=== PATIENT | male | born 1940 | race Two or more races ===

== ENCOUNTER 2023-06-23 15:31 | Inpatient (IN) | payer MEDICARE, MEDICAID ==
[~2023-06-23] VITALS: Ht 170.2 cm; Wt 73.4 kg
[2023-06-23 16:01] LABS: Basophils # (auto) 0.1 10 ^3/uL (0-0.2); Basophils % (auto) 0.8 % (0.0-2.0); Eosinophils # (auto) 0 10 ^3/uL (0-0.8); Eosinophils % (auto) 0.1 % (0.0-7.0); Hematocrit 49.7 % (41.0-53.0); Hemoglobin 16.7 g/dL (13.5-17.5); Lymphocytes # (auto) 0.8 10 ^3/uL (0.4-5.4); Lymphocytes % (auto) 6.8 % (10.0-50.0); Mean Corpuscular Hemoglobin 32.2 pg (28.0-32.0); Mean Corpuscular Hgb Conc. 33.6 g/dL (32.0-36.0); Mean Corpuscular Volume 95.6 fL (80.0-100.0); Monocytes # (auto) 0.6 10 ^3/uL (0-1.3); Monocytes % (auto) 4.9 % (0.0-12.0); Neutrophils # (auto) 10.3 10 ^3/uL (1.6-8.6); Neutrophils % (auto) 87.4 % (37.0-80.0); Red Cell Distribution Width 14.5 % (11.8-14.3); White Blood Cell 11.8 10^3/uL (4.4-10.8)
[2023-06-23 16:34] LABS: Calcium 9.1 mg/dL (8.5-10.1); Potassium 4.2 mmol/L (3.5-5.1)
[2023-06-23 16:38] LABS: BUN/Creatinine Ratio 12.1 (10.0-20.0); Bilirubin, Total 1.1 mg/dL (0.2-1.0); Total Protein 7.3 g/dL (6.4-8.2)
[2023-06-23 16:50] LABS: INR 1.05 (0.9-1.15); Partial Thromboplastin Time 28.8 SEC (24.5-34.5)
[2023-06-23] MEDS ORDERED: ONDANSETRON HCL 4 MG/2 ML VIAL IV PRN (20:45)
[2023-06-23] MEDS ORDERED: MORPHINE SULFATE INJ 2 MG/ml SYRG IV PRN (20:45)
[2023-06-23] MEDS ORDERED: NITROGLYCERIN 0.4 MG SL TAB SL PRN (20:45)
[2023-06-23] MEDS ORDERED: ACETAMINOPHEN 325 MG TAB PO PRN (20:45)
[2023-06-23] MEDS ORDERED: ATORVASTATIN 20 MG TAB PO SCH (22:00)
[2023-06-23 23:35] VITALS: PULSE 94; RESP 18; O2SAT 96
[2023-06-24] MEDS: METOPROLOL TARTRATE 25 MG TAB PO SCH ×3 (00:01→23:26)
[2023-06-24 05:59] LABS: Basophils # (auto) 0.1 10 ^3/uL (0-0.2); Basophils % (auto) 1.1 % (0.0-2.0); Eosinophils # (auto) 0.2 10 ^3/uL (0-0.8); Eosinophils % (auto) 2.3 % (0.0-7.0); Hematocrit 46.3 % (41.0-53.0); Hemoglobin 16.4 g/dL (13.5-17.5); Lymphocytes # (auto) 2.1 10 ^3/uL (0.4-5.4); Lymphocytes % (auto) 23.3 % (10.0-50.0); Mean Corpuscular Hemoglobin 33.2 pg (28.0-32.0); Mean Corpuscular Hgb Conc. 35.4 g/dL (32.0-36.0); Monocytes % (auto) 11.5 % (0.0-12.0); Neutrophils # (auto) 5.6 10 ^3/uL (1.6-8.6); Neutrophils % (auto) 61.8 % (37.0-80.0); Red Blood Cells 4.92 10^6/uL (4.5-5.90); Red Cell Distribution Width 14.8 % (11.8-14.3); White Blood Cell 9.1 10^3/uL (4.4-10.8)
[2023-06-24 06:05] LABS: Urine Bacteria NONE SEEN /hpf (None Seen); Urine Blood Negative /uL (Negative); Urine Clarity Clear (Clear); Urine Color Yellow (Yellow); Urine Hyaline Cast MOD /lpf (0 - 2); Urine Protein, UAD Negative (Negative); Urine Urobilinogen Normal (Negative); Urine WBC 5 /hpf (0 - 3); Urine pH 5.5 (5.0-8.0)
[2023-06-24 06:21] LABS: BUN/Creatinine Ratio 17.9 (10.0-20.0); Calcium 9.1 mg/dL (8.5-10.1); Potassium 3.6 mmol/L (3.5-5.1)
[2023-06-24 09:37] LABS: Magnesium 2.4 mg/dL (1.6-2.6)
[2023-06-24 09:39] LABS: Phosphorus 4.7 mg/dL (2.5-4.90)
[2023-06-24 09:44] LABS: Cholesterol 108 mg/dL (< 200); HDL Cholesterol 48 mg/dL (40-59); LDL Cholesterol 43 mg/dL (< 100); Triglycerides 160 mg/dL (< 150)
[2023-06-24 09:46] LABS: Urine Protein/Creatinine Ratio 0.13
[2023-06-24 09:48] LABS: Creatinine, Urine 175 mg/dL (30.0-125.0); Sodium Urine 36 mmol/L (40-220)
[2023-06-24 09:58] VITALS: PULSE 96; RESP 16; O2SAT 94
[2023-06-24] MEDS: PANTOPRAZOLE 40 MG TAB PO SCH (10:10)
[2023-06-24] MEDS: ASPirin 81 mg TAB PO SCH (10:10)
[2023-06-24] MEDS: AMIODARONE HCL 200 MG TAB PO SCH ×2 (11:00→23:25)
[2023-06-24] MEDS ORDERED: HEPARIN SODIUM (PORCINE) 5000 UNITS/ML 1ML VIAL IV ONE (11:00)
[2023-06-24] MEDS ORDERED: HEPARIN DRIP/D5W 100UNITS/ML 250 ML IV SCH (11:00)
[2023-06-24] MEDS: SODIUM CHLORIDE 0.9% 1,000 ML IV SCH (11:00)
[2023-06-24 12:04] LABS: INR 1.09 (0.9-1.15); Partial Thromboplastin Time 25.3 SEC (24.5-34.5); Prothrombin Time 11.4 sec (9.3-11.8)
[2023-06-24] MEDS ORDERED: DEXTROSE (50%) 50ML SYRG IV PRN (14:00)
[2023-06-24] MEDS: InsuLIN REG 1unit/0.01ml Soln (100units/ml) SC SCH ×2 (17:21→23:31)
[2023-06-24] MEDS: ACCU-CHEK COMFORT CURVE STRIP VI SCH ×2 (17:24→23:31)
[2023-06-24 18:41] LABS: INR 1.1 (0.9-1.15); Prothrombin Time 11.5 sec (9.3-11.8)
[2023-06-24 18:54] LABS: Partial Thromboplastin Time 128.5 SEC (24.5-34.5)
[2023-06-24 19:45] VITALS: PULSE 17; RESP 17; O2SAT 96
[2023-06-24] MEDS ORDERED: ATORVASTATIN 20 MG TAB PO SCH (22:00)
[2023-06-24 22:30] VITALS: BP 155/97; PULSE 94; RESP 20; TEMP 97.5; O2SAT 96
[2023-06-24] MEDS: DOCUSATE SOD 100 MG CAP PO SCH (23:24)
[2023-06-25] VITALS (12 sets, daily range): BP systolic 89–128; BP diastolic 55–79; PULSE 50–103; RESP 15–24; TEMP 36.7; O2SAT 92–99
[2023-06-25] MEDS: SODIUM CHLORIDE 0.9% 1,000 ML IV SCH ×2 (01:16→13:40)
[2023-06-25 02:27] LABS: INR 1.08 (0.9-1.15); Partial Thromboplastin Time 47.2 SEC (24.5-34.5); Prothrombin Time 11.3 sec (9.3-11.8)
[2023-06-25] MEDS ORDERED: HEPARIN DRIP/D5W 100UNITS/ML 250 ML IV SCH (03:15)
[2023-06-25] MEDS: ACCU-CHEK COMFORT CURVE STRIP VI SCH ×2 (05:46→11:46)
[2023-06-25] MEDS: InsuLIN REG 1unit/0.01ml Soln (100units/ml) SC SCH ×2 (05:46→11:46)
[2023-06-25 05:55] LABS: Basophils # (auto) 0.1 10 ^3/uL (0-0.2); Basophils % (auto) 1.2 % (0.0-2.0); Eosinophils # (auto) 0.3 10 ^3/uL (0-0.8); Eosinophils % (auto) 3.1 % (0.0-7.0); Hematocrit 46.5 % (41.0-53.0); Hemoglobin 16.2 g/dL (13.5-17.5); Lymphocytes # (auto) 1.2 10 ^3/uL (0.4-5.4); Lymphocytes % (auto) 14.5 % (10.0-50.0); Mean Corpuscular Hgb Conc. 34.8 g/dL (32.0-36.0); Mean Corpuscular Volume 94.8 fL (80.0-100.0); Monocytes # (auto) 0.8 10 ^3/uL (0-1.3); Monocytes % (auto) 9.9 % (0.0-12.0); Neutrophils % (auto) 71.3 % (37.0-80.0); Nucleated Red Blood Cells % 0.1 %; Red Blood Cells 4.91 10^6/uL (4.5-5.90); Red Cell Distribution Width 14.9 % (11.8-14.3); White Blood Cell 8.5 10^3/uL (4.4-10.8)
[2023-06-25 06:05] LABS: BUN/Creatinine Ratio 23.4 (10.0-20.0); Calcium 8.7 mg/dL (8.5-10.1); Potassium 3.6 mmol/L (3.5-5.1)
[2023-06-25] MEDS ORDERED: ERGOCALCIFEROL 50,000 UNIT(1.25MG) CAP PO SCH ×2 (09:00→09:15)
[2023-06-25] MEDS: ASPirin 81 mg TAB PO SCH (10:02)
[2023-06-25] MEDS: DOCUSATE SOD 100 MG CAP PO SCH (10:02)
[2023-06-25] MEDS: METOPROLOL TARTRATE 25 MG TAB PO SCH (10:03)
[2023-06-25] MEDS: AMIODARONE HCL 200 MG TAB PO SCH (10:03)
[2023-06-25] MEDS: PANTOPRAZOLE 40 MG TAB PO SCH (10:03)
[2023-06-25 10:15] LABS: INR 1.12 (0.9-1.15); Partial Thromboplastin Time 57.3 SEC (24.5-34.5); Prothrombin Time 11.7 sec (9.3-11.8)
[2023-06-25] MEDS ORDERED: ANGIOMAX 250 MG VIAL IV ONE (13:25)
[2023-06-25] MEDS ORDERED: MIDAZOLAM HCL 2MG/2ML 2ml VIAL (1mg/ml) ONE (13:26)
[2023-06-25] MEDS ORDERED: fentaNYL CITRATE 100 MCG/2 ML VL ONE (13:26)
[2023-06-25] MEDS ORDERED: SODIUM CHL 0.9% 0 ML ONE (13:26)
[2023-06-25] MEDS ORDERED: LIDOCAINE 2%HCL (LOCAL ANESTH.) INJ 20ML MDV ONE (13:27)
[2023-06-25 16:47] LABS: INR 1.08 (0.9-1.15); Partial Thromboplastin Time 32.2 SEC (24.5-34.5); Prothrombin Time 11.3 sec (9.3-11.8)
== END 2023-06-25 18:20 | disposition home or self-care (01) | DRG 280 ==
LOC: ER 15:31 → TELE 20:41 → TELE-EAST 06-24 22:06
PROVIDERS: ADMIT Internal Medicine; ATTEND Student in an Organized Health Care Education/Training Program
PROC: 4A023N7 Measurement of Cardiac Sampling and Pressure, Left Heart, Percutaneous Approach (ICD-10-PCS; principal; 2023-06-25)
PROC: B2111ZZ Fluoroscopy of Multiple Coronary Arteries using Low Osmolar Contrast (ICD-10-PCS; 2023-06-25)
PROC: B2151ZZ Fluoroscopy of Left Heart using Low Osmolar Contrast (ICD-10-PCS; 2023-06-25)
DX: R07.9 Chest pain, unspecified (principal); N17.0 Acute kidney failure with tubular necrosis; I21.4 Non-ST elevation (NSTEMI) myocardial infarction; D68.59 Other primary thrombophilia; I25.110 Atherosclerotic heart disease of native coronary artery with unstable angina pectoris; I48.91 Unspecified atrial fibrillation; R73.9 Hyperglycemia, unspecified; I51.9 Heart disease, unspecified; N18.2 Chronic kidney disease, stage 2 (mild); I12.9 Hypertensive chronic kidney disease with stage 1 through stage 4 chronic kidney disease, or unspecified chronic kidney disease; Z79.01 Long term (current) use of anticoagulants; I25.2 Old myocardial infarction; Z82.49 Family history of ischemic heart disease and other diseases of the circulatory system; Z87.891 Personal history of nicotine dependence; Z79.82 Long term (current) use of aspirin
CPT/HCPCS: 36415; 71045; 76775; 80048; 80053; 80061; 81001; 82306; 82570; 82962; 83036; 83735; 83880; 83970; 84100; 84156; 84300; 84443; 84484; 85025; 85379; 85610; 85730; 86850; 86900; 86901; 93005; 93306; 93458; 99152; G0378; J1815; J2250